=== PATIENT | female | born 1940 | race Caucasian/White ===

== ENCOUNTER 2021-08-10 18:03 | Outpatient (RCR) | payer SELFPAY | END 2022-03-23 15:58 | disposition home or self-care (01) | LOC: MOW 18:03 | PROVIDERS: PCP Family Medicine; Visit Provider Family Medicine | DX: Z76.0 Encounter for issue of repeat prescription (principal) | CPT/HCPCS: S5170 ==

== ENCOUNTER 2021-10-09 20:52 | Emergency (ER) | payer MEDICARE, BC, SELFPAY ==
[2021-10-09 21:01] VITALS: BP 137/89; PULSE 73; RESP 16; TEMP 36.9; O2SAT 98; BMI 23.0
--- NOTE | 2021-10-09 21:40 | ED_ITS ---
HPI - Wound/Laceration General Chief Complaint: Laceration/Wound Stated Complaint: Fall, head lac Time Seen by Provider: 10/09/21 21:20 History of Present Illness HPI narrative: 81-year-old woman presenting to the emergency department with her daughter with whom she lives, underlying history of dense dementia, after sustaining a head injury. Had apparently been croutching in the kitchen and went over backwards striking her head on the wooden floor. They noticed blood and swelling and were recommended to follow up in the emergency department. No loss of consciousness. History from [place] and is not really possible. She is not apparently having unusual pain. Denies neck pain. No changes in mental status or coordination is noted. She has not been vomiting. She is not anticoagulated Related Data Home Medications Medication Instructions Recorded Confirmed donepezil 10 mg tablet 10 mg PO HS 10/09/21 10/09/21 escitalopram oxalate 20 mg tablet 20 mg PO DAILY 10/09/21 10/09/21 levothyroxine 75 mcg tablet 75 mcg PO DAILY 10/09/21 10/09/21 metoprolol succinate 50 mg 50 mg PO DAILY 10/09/21 10/09/21 tablet,extended release 24 hr Allergies Allergy/AdvReac Type Severity Reaction Status Date / Time No Known Drug Allergies Allergy Verified 10/09/21 21:03 Review of Systems Status of ROS: Reports: 6 or more systems reviewed and unremarkable except as noted in History and below (assisted by family) [facility] Medical History Arthritis Closed traumatic compression fracture of thoracic vertebra Dementia Hypothyroidism Lymphocytic colitis Panic disorder Tachycardia, unspecified Vitamin D deficiency Surgical History History of hemorrhoidectomy History of oophorectomy History of vaginal hysterectomy Social History Smoking Status: Never smoker Do you use any of these nicotine containing products: None How often do you have a drink containing alcohol: never AUDIT-C Alcohol total score: 0 Non-prescribed substance use: denies use Exam Narrative: Exam Narrative: pleasant, nad. gcs of 15 through with clear evidence of dementia. breathing easily. cn 2-12 intact head upper occipital area with lightly gapping 1.25 cm laceration. small blood in the area. neck supple skin warm and dry without evidence of injury other than as above. no pain to palp across extremities. no edema. well-perfused. moving all extremities without difficulty cv with reg rate back without apparent injury, nt and without deformity o/t upper kyphosis lungs clear abd protuberant, soft, nt no pain or instability to palp of hips/ant iliac crests Const: Vital Signs, click to edit/add: Vital Signs - 24 hr 10/09/21 21:01 Temperature 98.5 F Pulse Rate [Right Pulse Oximeter] 73 Respiratory Rate 16 Blood Pressure [Le ft Upper Arm] 137/89 Pulse Oximetry 98 Oxygen Delivery Me thod Room Air Documenting provider has reviewed patient's vital signs: yes Course Course Hospital Course: We discussed imaging that might be needed. The question that daughter has is what sort of interventions then reasonably would be done. I take this to mean that DNR status is in effect. Vital Signs Vital signs: Initial Vital Signs Temperature 98.5 F 10/09/21 21:01 Temperature Source Temporal Artery Scan 10/09/21 21:01 Pulse Rate 73 10/09/21 21:01 Respiratory Rate 16 10/09/21 21:01 Blood Pressure 137/89 10/09/21 21:01 Blood Pressure Mean 105 10/09/21 21:01 Blood Pressure Position Sitting 10/09/21 21:01 Pulse Oximetry 98 10/09/21 21:01 Oxygen Delivery Method 10/09/21 21:01 Vital Signs Temperature 98.5 F 10/09/21 21:01 Pulse Rate 73 10/09/21 21:01 Respiratory Rate 16 10/09/21 21:01 Blood Pressure 137/89 10/09/21 21:01 Pulse Oximetry 98 10/09/21 21:01 Oxygen Delivery Method 10/09/21 21:01 Temperature 98.5 F 10/09/21 22:01 Pulse Rate 74 10/09/21 22:01 Respiratory Rate 18 10/09/21 22:01 Blood Pressure 129/74 10/09/21 22:01 Pulse Oximetry 98 10/09/21 22:00 Oxygen Delivery Method 10/09/21 22:00 MDM - Wound/Laceration MDM Narrative Medical decision making narrative: In shared decision making decided to defer any imaging pending change in status. Cleansed head wound with Shur-Clens solution and placed 1 staple. Medical Records Attestation: I reviewed the patient's medical records. Discharge Plan Discharge Clinical Impression: Closed head injury, Laceration of scalp Patient Disposition: Home w/ Parent or Adult Condition: Improved Additional Instructions: Have the staple removed/take out the stable in 5-7 days. As far as head injury, watch for unusual somnolence, repeated vomiting, marked increase in headache, discoordination, changes in mental status/confusion. I would consider further applying an ice pack yet tonight and maybe a couple of times tomorrow. Prescriptions: No Action donepezil 10 mg tablet 10 mg PO HS escitalopram oxalate 20 mg tablet 20 mg PO DAILY levothyroxine 75 mcg tablet 75 mcg PO DAILY metoprolol succinate 50 mg tablet extended release 24 hr 50 mg PO DAILY Follow Up/Referrals: Lory Pedersen MD [Primary Care Provider] - Stand Alone Forms: [employer] Info Instructions
[2021-10-09 22:00] VITALS: BP 129/74; PULSE 74; RESP 18; TEMP 36.9; O2SAT 98
[2021-10-09 22:01] VITALS: BP 129/74; PULSE 74; RESP 18; TEMP 36.9
== END 2021-10-09 22:02 | disposition home or self-care (01) ==
PROVIDERS: Emergency Provider Family Medicine; PCP Family Medicine
DX: S01.01XA Laceration without foreign body of scalp, initial encounter (principal); W01.0XXA Fall on same level from slipping, tripping and stumbling without subsequent striking against object, initial encounter; F03.90 Unspecified dementia, unspecified severity, without behavioral disturbance, psychotic disturbance, mood disturbance, and anxiety
CPT/HCPCS: 12001; 99283

== ENCOUNTER 2022-11-15 12:42 | Outpatient (REF) | payer MEDICARE, BC, SELFPAY ==
[2022-11-15 13:27] LABS: Chloride* 102 mmol/L (96-114); Potassium* 4.4 mmol/L (3.6-5.1); Sodium* 138 mmol/L (135-149)
[2022-11-15 13:29] LABS: Creatinine* 0.6 mg/dL (0.5-1.5); Estimated Glomerular Filt Rate 91 ml/min
[2022-11-15 13:30] LABS: Anion Gap 10 mEq/L (7-15); Blood Urea Nitrogen* 15 mg/dL (7-30); Calcium* 9.5 mg/dL (8.4-10.6); Carbon Dioxide* 26 mmol/L (20-32); Glucose* 91 mg/dL (60-115)
[2022-11-15 14:07] LABS: Hemoglobin A1C* 5.08 % (0-5.6)
== END 2022-11-15 12:43 | disposition home or self-care (01) ==
LOC: NPINS 12:42
PROVIDERS: PCP Family Medicine; Visit Provider Nurse Practitioner Gerontology
DX: R53.83 Other fatigue (principal); Z13.1 Encounter for screening for diabetes mellitus; Z13.0 Encounter for screening for diseases of the blood and blood-forming organs and certain disorders involving the immune mechanism
CPT/HCPCS: 80048; 83036; 85018

== ENCOUNTER 2022-12-14 15:13 | Outpatient (REF) | payer MEDICARE, BC, MEDICAID, SELFPAY ==
[2022-12-14 17:07] LABS: Basophils Percent Auto 0.7 % (0.0-3.0); Eosinophils Percent Auto 3.4 % (0.0-7.0); Hematocrit 42.5 % (33.0-51.0); Hemoglobin* 13.6 gm/dL (12.0-16.0); Lymphocytes Percent Auto 26.4 % (20-44); Mean Corpuscular HGB Conc 32 gm/dL (32-36); Mean Corpuscular Hemoglobin 30 pg (26-34); Mean Corpuscular Volume 95 fL (80-100); Monocytes Percent Auto 5.5 % (0.0-11.0); Platelet Count* 266 K/uL (140-440); RDW Coefficient of Variation % 12.7 % (11.5-15.5); Red Blood Count 4.47 m/uL (4.00-5.20); White Blood Count* 4.35 K/uL (4.50-11.00)
[2022-12-14 17:25] LABS: Slide Review Reflex No
[2022-12-14 18:10] LABS: Thyroid Stimulating Hormone* 0.182 uIU/mL (0.270-4.20)
== END 2022-12-14 15:14 | disposition home or self-care (01) ==
LOC: NPINS 15:13
PROVIDERS: PCP Family Medicine; Visit Provider Family Medicine
DX: E03.9 Hypothyroidism, unspecified (principal)
CPT/HCPCS: 84443; 85025

== ENCOUNTER 2023-03-21 10:35 | Outpatient (REF) | payer MEDICARE, BC, MEDICAID, SELFPAY | END 2023-03-21 10:36 | disposition home or self-care (01) | LOC: NPINS 10:35 | PROVIDERS: PCP Family Medicine; Visit Provider Nurse Practitioner Gerontology | DX: E03.9 Hypothyroidism, unspecified (principal) | CPT/HCPCS: 84443 ==

== ENCOUNTER 2023-08-12 06:31 | Outpatient (CLI) | payer MEDICARE, BC, MEDICAID, SELFPAY | END 2023-08-12 06:32 | disposition home or self-care (01) | LOC: AMB 08-14 15:28 | PROVIDERS: PCP Family Medicine; Visit Provider Family Medicine | DX: S79.911A Unspecified injury of right hip, initial encounter (principal); W07.XXXA Fall from chair, initial encounter; Y92.039 Unspecified place in apartment as the place of occurrence of the external cause | CPT/HCPCS: A0425; A0429 ==

== ENCOUNTER 2023-08-12 06:56 | Observation (INO) | payer MEDICARE, BC, MEDICAID, SELFPAY ==
[2023-08-12 07:02] VITALS: BP 105/66; PULSE 78; RESP 18; TEMP 36.7; O2SAT 99
--- NOTE | 2023-08-12 07:06 | CRLHL7_ITS ---
For Patients: As a result of the Cures Act, medical imaging exams and procedure reports are released immediately into your electronic medical record. You may view this report before your referring provider. If you have questions, please contact your health care provider. Indication: Injury right hip Technique: An AP view of the pelvis was acquired as well as AP and lateral views of the right hip Comparison: None Findings: Decreased bone mineral density. Degenerative changes of visualized lower lumbar spine. No evidence of acute fracture, dislocation or destructive process regarding the visualized sacrum, pelvis or hip joints. Heterogeneous increased density of the soft tissues lateral to the right hip probably a hematoma. Impression: Heterogeneous increased density of the soft tissues lateral to the right hip probably representing hematoma. Demineralized osseous structures and degenerative changes. No visible acute fracture, dislocation or destructive process. Dictated by Winston Acuna MD @ 08/12/2023 8:02:20 AM (Electronically Signed)
--- NOTE | 2023-08-12 07:08 | ED.FALL ---
HPI - Fall General Date Seen: 08/12/23 <Stef Lopez MD - Last Filed: 08/12/23 07:55> Chief Complaint: Hip Injury/Pain <Stef Lopez MD - Last Filed: 08/12/23 07:55> Stated Complaint: right hip injury <Stef Lopez MD - Last Filed: 08/12/23 07:55> Time Seen by Provider: 08/12/23 07:06 <Stef Lopez MD - Last Filed: 08/12/23 07:55> Source: patient, family, EMS, RN notes reviewed and old records reviewed <Stef Lopez MD - Last Filed: 08/12/23 07:55> Mode of arrival: EMS <Stef Lopez MD - Last Filed: 08/12/23 07:55> Limitations: altered mental status <Stef Lopez MD - Last Filed: 08/12/23 07:55> History of Present Illness HPI Narrative: Patient is 83-year-old female who is a resident of the memory care unit at [facility]. She is brought in by EMS after she fell, it was thought that she was sitting down yesterday, around 5:00 p.m.. Just after she ate dinner. She is able to bear weight and transfer at that time. And they did not think anything came of the fall. This morning they noticed that she had a huge amount of swelling over her right hip region with bruising. And she did go on a bear weight. Her baseline status with the dementia as she is basically uncommunicative. Her daughter is here with her. No history of head injury after the fall. Her daughter did notice that her mouth was trembling. She is DNR DNI per her POLST <Stef Lopez MD - Last Filed: 08/12/23 07:55> MD complaint: fall <Stef Lopez MD - Last Filed: 08/12/23 07:55> Onset (ago): hour(s) (14) <Stef Lopez MD - Last Filed: 08/12/23 07:55> Fall from: standing <Stef Lopez MD - Last Filed: 08/12/23 07:55> Fall witnessed: no <Stef Lopez MD - Last Filed: 08/12/23 07:55> Place fall occurred: home and care home/SNF <Stef Lopez MD - Last Filed: 08/12/23 07:55> Loss of consciousness: No <Stef Lopez MD - Last Filed: 08/12/23 07:55> Prolonged down time: no <Stef Lopez MD - Last Filed: 08/12/23 07:55> Symptoms prior to fall: none <Stef Lopez MD - Last Filed: 08/12/23 07:55> Context: other <Stef Lopez MD - Last Filed: 08/12/23 07:55> Location of injury: pelvis <Stef Lopez MD - Last Filed: 08/12/23 07:55> Location of injury - extremities: Right: shoulder <Stef Lopez MD - Last Filed: 08/12/23 07:55> Severity: moderate <Stef Lopez MD - Last Filed: 08/12/23 07:55> Related Data Home Medications: Home Medications ?Medication ?Instructions ?Recorded ?Confirmed donepezil 10 mg tablet 10 mg PO HS 10/09/21 08/12/23 escitalopram oxalate 20 mg tablet 20 mg PO DAILY 10/09/21 08/12/23 metoprolol succinate 50 mg 50 mg PO DAILY 10/09/21 08/12/23 tablet,extended release 24 hr levothyroxine 50 mcg tablet 50 mcg PO DAILY 08/12/23 08/12/23 <Stef Lopez MD - Last Filed: 08/12/23 07:55> Allergies/Adverse Reactions: Allergies Allergy/AdvReac Type Severity Reaction Status Date / Time No Known Drug Allergies Allergy Verified 08/12/23 07:06 <Stef Lopez MD - Last Filed: 08/12/23 07:55> Review of Systems Status of ROS: Reports: unobtainable due to medical condition <Stef Lopez MD - Last Filed: 08/12/23 07:55> PFSH PFSH Medical History: Medical History Arthritis ?M19.90 - Unspecified osteoarthritis, unspecified site (ICD-10) Hypothyroidism ?E03.9 - Hypothyroidism, unspecified (ICD-10) Tachycardia, unspecified ?R00.0 - Tachycardia, unspecified (ICD-10) Vitamin D deficiency ?E55.9 - Vitamin D deficiency, unspecified (ICD-10) Panic disorder ?F41.0 - Panic disorder [episodic paroxysmal anxiety] (ICD-10) Dementia ?F03.90 - Unspecified dementia without behavioral disturbance (ICD-10) Lymphocytic colitis ?K52.832 - Lymphocytic colitis (ICD-10) Closed traumatic compression fracture of thoracic vertebra ?S22.009A - Unspecified fracture of unspecified thoracic vertebra, initial encounter for closed fracture (ICD-10) <Stef Lopez MD - Last Filed: 08/12/23 07:55> Surgical History: Surgical History History of oophorectomy History of vaginal hysterectomy ?Z90.710 - Acquired absence of both cervix and uterus (ICD-10) History of hemorrhoidectomy ?Z98.890 - Other specified postprocedural states (ICD-10) <Stef Lopez MD - Last Filed: 08/12/23 07:55> Social History: Social History Smoking Status: Never smoker Do you use any of these nicotine containing products: None How often do you have a drink containing alcohol: never AUDIT-C Alcohol total score: 0 Non-prescribed substance use: denies use <Stef Lopez MD - Last Filed: 08/12/23 07:55> Exam Narrative: Exam Narrative: I find her in room 6, her knees are drawn up, she is trembling, with her eyes closed and is not at all speaking. She appears at baseline according to her daughter. He does speak words that her usually unintelligible. Pupils are equal round reactive to light, no Perez sign TMs are normal, she does not open her mouth. I do not feel any evidence of any cranial injuries bruising, her neck appears to be nontender to palpation, her chest is good air entry bilaterally with no wheezing crackles noted, heart sounds no clicks murmurs or gallops, no evidence of any bruising over the chest, her abdomen is soft, scaphoid, nontender. With no organomegaly bowel sounds are normal. Her lumbar spine and thoracic spine show no evidence of any tenderness she has a very large right-sided hematoma overlying her right hip. There is ecchymosis overlying this. Her knees are both drawn up, there is no shortening of her legs, she has a normal femoral pulse bilaterally and normal DP and posterior tibial. No evidence of any other deformity noted, her pelvis is stable to rocking. She appears slightly pale. Her daughter tells me that is her normal couple color I discussed with her daughter, we will honor her DNR DNI status. I would suggest pelvis and right hip x-ray. Along with CBC and basic, once we get this we can discuss further care. <Stef Lopez MD - Last Filed: 08/12/23 07:55> Const: Vital Signs, click to edit/add: Vital Signs - 24 hr 08/12/23 07:02 Temperature 98.0 F Pulse Rate [Right Pulse Oximeter] 78 Respiratory Rate 18 Blood Pressure [Ri ght Upper Arm] 105/66 Pulse Oximetry 99 Oxygen Delivery Me thod Room Air <Stef Lopez MD - Last Filed: 08/12/23 07:55> Vital Signs, click to edit/add: Vital Signs - 24 hr 08/12/23 07:02 Temperature 98.0 F Pulse Rate [Right Pulse Oximeter] 78 Respiratory Rate 18 Blood Pressure [Ri ght Upper Arm] 105/66 Pulse Oximetry 99 Oxygen Delivery Me thod Room Air <Maico Jarrett MD - Last Filed: 08/12/23 08:47> Documenting provider has reviewed patient's vital signs: yes <Stef Lopez MD - Last Filed: 08/12/23 07:55> Course Course ED Course: I discussed with the daughter there is no evidence of a fracture, she is in the assisted living/memory care she may need full care home, I am not sure were able to get that with this situation she may need to be admitted. +the hemoglobin and labs need to come back I will sign her over to my partner for further care. <Stef Lopez MD - Last Filed: 08/12/23 07:55> Reevaluation(s) Time of Reevaluation #1: 08:12 <Maico Jarrett MD - Last Filed: 08/12/23 08:47> Reevaluation #1: Assumed care from Dr. Lopez at change of shift. Briefly, 83-year-old female who sustained a fall yesterday, today with increased difficulty weight-bearing a large hematoma the right hip. Labs independently interpreted by me with slightly elevated white count 11.33, this could be from stress demargination, also hemoglobin 11.4 which is down slightly from her baseline last year and may reflect acute blood loss anemia, platelets 235. Basic panel is reassuring. Plan to admit for serial hemoglobin and also physical therapy although patient as been ambulatory since her fall. <Maico Jarrett MD - Last Filed: 08/12/23 08:47> Time of Reevaluation #2: 08:45 <Maico Jarrett MD - Last Filed: 08/12/23 08:47> Reevaluation #2: Care discussed with Dr. Odonnell who accepts the patient for admission. <Maico Jarrett MD - Last Filed: 08/12/23 08:47> Vital Signs Vital signs: Initial Vital Signs Temperature 98.0 F 08/12/23 07:02 Temperature Source Temporal Artery Scan 08/12/23 07:02 Pulse Rate 78 08/12/23 07:02 Respiratory Rate 18 08/12/23 07:02 Blood Pressure 105/66 08/12/23 07:02 Blood Pressure Mean 79 08/12/23 07:02 Blood Pressure Position Sitting 08/12/23 07:02 Pulse Oximetry 99 08/12/23 07:02 Oxygen Delivery Method Room Air 08/12/23 07:02 Vital Signs Temperature 98.0 F 08/12/23 07:02 Pulse Rate 78 08/12/23 07:02 Respiratory Rate 18 08/12/23 07:02 Blood Pressure 105/66 08/12/23 07:02 Pulse Oximetry 99 08/12/23 07:02 Oxygen Delivery Method Room Air 08/12/23 07:02 Temperature 98.0 F 08/12/23 07:02 Pulse Rate 78 08/12/23 07:02 Respiratory Rate 18 08/12/23 07:02 Blood Pressure 105/66 08/12/23 07:02 Pulse Oximetry 99 08/12/23 07:02 Oxygen Delivery Method Room Air 08/12/23 07:02 <Stef Lopez MD - Last Filed: 08/12/23 07:55> Initial Vital Signs Temperature 98.0 F 08/12/23 07:02 Temperature Source Temporal Artery Scan 08/12/23 07:02 Pulse Rate 78 08/12/23 07:02 Respiratory Rate 18 08/12/23 07:02 Blood Pressure 105/66 08/12/23 07:02 Blood Pressure Mean 79 08/12/23 07:02 Blood Pressure Position Sitting 08/12/23 07:02 Pulse Oximetry 99 08/12/23 07:02 Oxygen Delivery Method Room Air 08/12/23 07:02 Vital Signs Temperature 98.0 F 08/12/23 07:02 Pulse Rate 78 08/12/23 07:02 Respiratory Rate 18 08/12/23 07:02 Blood Pressure 105/66 08/12/23 07:02 Pulse Oximetry 99 08/12/23 07:02 Oxygen Delivery Method Room Air 08/12/23 07:02 Temperature 98.0 F 08/12/23 07:02 Pulse Rate 78 08/12/23 07:02 Respiratory Rate 18 08/12/23 07:02 Blood Pressure 105/66 08/12/23 07:02 Pulse Oximetry 99 08/12/23 07:02 Oxygen Delivery Method Room Air 08/12/23 07:02 <Maico Jarrett MD - Last Filed: 08/12/23 08:47> Medications Administered Medications: Discontinued Medications Generic Name Dose Route Start Last Admin Trade Name Freq PRN Reason Stop Dose Admin Morphine Sulfate 2 mg 08/12/23 07:06 08/12/23 07:51 Morphine 2 Mg/Ml Inj IVP 08/12/23 07:07 2 mg ONCE ONE Administration <Stef Lopez MD - Last Filed: 08/12/23 07:55> Discontinued Medications Generic Name Dose Route Start Last Admin Trade Name Freq PRN Reason Stop Dose Admin Morphine Sulfate 2 mg 08/12/23 07:06 08/12/23 07:51 Morphine 2 Mg/Ml Inj IVP 08/12/23 07:07 2 mg ONCE ONE Administration <Maico Jarrett MD - Last Filed: 08/12/23 08:47> [facility] - Fall Medical Records Attestation: I reviewed the patient's medical records. <Stef Lopez MD - Last Filed: 08/12/23 07:55> Lab Data Labs: Lab Results 08/12/23 Range/Units 07:30 WBC 11.33 H (4.50-11.00) K/uL RBC 3.71 L (4.00-5.20) m/uL Hgb 11.4 L (12.0-16.0) gm/dL Hct 35.5 (33.0-51.0) % MCV 96 (80-100) fL MCH 31 (26-34) pg MCHC 32 (32-36) gm/dL RDW Coeff of Jai 12.8 (11.5-15.5) % Plt Count 235 (140-440) K/uL Neut % (Auto) 87.5 H (42.0-72.0) % Lymph % (Auto) 7.8 L (20-44) % Cochran % (Auto) 4.2 (0.0-11.0) % Eos % (Auto) 0.1 (0.0-7.0) % Baso % (Auto) 0.2 (0.0-3.0) % Neut # (Auto) 9.90 H (1.7-7.0) K/uL Lymph # (Auto) 0.90 (0.90-2.90) K/uL Cochran # (Auto) 0.50 (0.00-0.90) K/UL Eos # (Auto) 0.00 (0.00-0.50) K/uL Baso # (Auto) 0.00 (0.00-0.30) K/uL Abs Immat Gran (auto) 0.00 (0.00-0.30) K/uL Imm/Tot Granulo (auto) 0.2 % Sodium 138 (135-149) mmol/L Potassium 3.8 (3.6-5.1) mmol/L Chloride 108 (96-114) mmol/L Carbon Dioxide 24 (20-32) mmol/L Anion Gap 6 L (7-15) mEq/L BUN 17 (7-30) mg/dL Creatinine 0.6 (0.5-1.5) mg/dL Estimated GFR 90 ml/min Glucose 149 H (60-115) mg/dL Calcium 9.0 (8.4-10.6) mg/dL <Stef Lopez MD - Last Filed: 08/12/23 07:55> Lab Results 08/12/23 Range/Units 07:30 WBC 11.33 H (4.50-11.00) K/uL RBC 3.71 L (4.00-5.20) m/uL Hgb 11.4 L (12.0-16.0) gm/dL Hct 35.5 (33.0-51.0) % MCV 96 (80-100) fL MCH 31 (26-34) pg MCHC 32 (32-36) gm/dL RDW Coeff of Jai 12.8 (11.5-15.5) % Plt Count 235 (140-440) K/uL Neut % (Auto) 87.5 H (42.0-72.0) % Lymph % (Auto) 7.8 L (20-44) % Cochran % (Auto) 4.2 (0.0-11.0) % Eos % (Auto) 0.1 (0.0-7.0) % Baso % (Auto) 0.2 (0.0-3.0) % Neut # (Auto) 9.90 H (1.7-7.0) K/uL Lymph # (Auto) 0.90 (0.90-2.90) K/uL Cochran # (Auto) 0.50 (0.00-0.90) K/UL Eos # (Auto) 0.00 (0.00-0.50) K/uL Baso # (Auto) 0.00 (0.00-0.30) K/uL Abs Immat Gran (auto) 0.00 (0.00-0.30) K/uL Imm/Tot Granulo (auto) 0.2 % Sodium 138 (135-149) mmol/L Potassium 3.8 (3.6-5.1) mmol/L Chloride 108 (96-114) mmol/L Carbon Dioxide 24 (20-32) mmol/L Anion Gap 6 L (7-15) mEq/L BUN 17 (7-30) mg/dL Creatinine 0.6 (0.5-1.5) mg/dL Estimated GFR 90 ml/min Glucose 149 H (60-115) mg/dL Calcium 9.0 (8.4-10.6) mg/dL <Maico Jarrett MD - Last Filed: 08/12/23 08:47> Imaging Data Hip x-ray: Attestation: I have reviewed the pertinent imaging results. <Stef Lopez MD - Last Filed: 08/12/23 07:55> My impression: Pelvis son right hip x-ray are reviewed I do not see any evidence of a fracture, I can see the soft tissue swelling consistent with a hematoma. <Stef Lopez MD - Last Filed: 08/12/23 07:55> Discharge Plan Discharge Clinical Impression: Traumatic hematoma of right hip, Dementia, Acute blood loss anemia <Stef Lopez MD - Last Filed: 08/12/23 07:55> Patient Disposition: Admitted As Observation <Stef Lopez MD - Last Filed: 08/12/23 07:55>
[2023-08-12] MEDS: MORPHINE 2 MG/ML inj IVP (07:51)
[2023-08-12 07:58] LABS: Basophils Percent Auto 0.2 % (0.0-3.0); Eosinophils Percent Auto 0.1 % (0.0-7.0); Hematocrit 35.5 % (33.0-51.0); Hemoglobin* 11.4 gm/dL (12.0-16.0); Immature Granulocytes Pct Auto 0.2 %; Lymphocytes Percent Auto 7.8 % (20-44); Mean Corpuscular HGB Conc 32 gm/dL (32-36); Mean Corpuscular Hemoglobin 31 pg (26-34); Mean Corpuscular Volume 96 fL (80-100); Monocytes Percent Auto 4.2 % (0.0-11.0); Neutrophils Percent Auto 87.5 % (42.0-72.0); Platelet Count* 235 K/uL (140-440); RDW Coefficient of Variation % 12.8 % (11.5-15.5); Red Blood Count 3.71 m/uL (4.00-5.20); White Blood Count* 11.33 K/uL (4.50-11.00)
[2023-08-12 08:04] LABS: Chloride* 108 mmol/L (96-114); Potassium* 3.8 mmol/L (3.6-5.1); Slide Review Reflex No; Sodium* 138 mmol/L (135-149)
[2023-08-12 08:07] LABS: Anion Gap 6 mEq/L (7-15); Blood Urea Nitrogen* 17 mg/dL (7-30); Carbon Dioxide* 24 mmol/L (20-32); Creatinine* 0.6 mg/dL (0.5-1.5); Estimated Glomerular Filt Rate 90 ml/min; Glucose* 149 mg/dL (60-115)
--- NOTE | 2023-08-12 09:16 | CRLHL7_ITS ---
For Patients: As a result of the Century Cures Act, medical imaging exams and procedure reports are released immediately into your electronic medical record. You may view this report before your referring provider. If you have questions, please contact your health care provider. INDICATION: Right hip pain after a fall. COMPARISON: Plain film 12 August 2023. TECHNIQUE: Noncontrast images pelvis with actual full filled performance. Axial coronal and sagittal small field performance right hip. FINDINGS: Moderately prominent diffuse demineralization. Mild degenerative facet arthrosis and disc disease in the lumbosacral spine. Minor osteoarthritis and vacuum joint air in both SI joints. No sacral fracture. No pelvic fracture. Minor osteoarthritis symphysis pubis. Anatomic alignment of the hips. Mild osteoarthritis narrowing and osteophytic spurring bilaterally. In the subcutaneous soft tissues of the right lateral hip into the thigh there is a lentiform intermediate attenuation presumed hematoma with some surrounding reticular contusion and edema appearance. Greatest axial diameter roughly 9.4 x 4.6 cm in craniocaudal length at roughly 11 cm. This is superficial to the iliotibial band. No fluid in the trochanteric bursa. Intact hamstring. Muscle bulk and attenuation unremarkable for age. IMPRESSION: Moderately large acute appearing hematoma in the subcutaneous adipose of the lateral right hip and proximal thigh. Please note that all CT scans at this facility use dose modulation, iterative reconstruction, and/or weight-based dosing when appropriate to reduce radiation dose to as low as reasonably achievable. Dictated by Ray Perez MD @ 08/12/2023 9:43:48 AM (Electronically Signed)
--- NOTE | 2023-08-12 09:36 | P.IMHP_ITS ---
Hospitalist- H&P: JORGE History of Present Illness Date Seen: 08/12/23 Chief complaint: right hip injury Narrative: Cristal Solis is a 83 year old woman is brought in to the [facility] Emergency Department this morning for further assessment of right hip pain. Lives in [facility] at [place], [place]. Has underlying advanced dementia and is usually non communicative. Her needs and wants are anticipated in great measure. Was in her usual state of health until 5:00 p.m. yesterday when after dinner she was found sitting on the floor. It was thought that she simply sat on the floor and had no injury. They were able to help her get up and she was able to ambulate without difficulty afterward. This morning however she complained of right hip pain and the pain was such that she refused to get up and ambulate as usual. They found a large hematoma over the right hip lateral aspect and thus referred her to the hospital for further assessment. In our emergency depart x-ray demonstrated no obvious fracture of bones. Does have soft tissue density consistent with hematoma on x-ray. Additionally her hemoglobin was down to 11.4 from baseline of 13.6 7 months ago. Hence, given patient's inability to transfer and ambulate now compared to baseline and the fact that her current assisted living facility abilities preclude them from being able to care for her at this higher level of need, patient is admitted to the hospital for observation, physical therapy and occupational therapy assessment and support, and consideration of appropriate discharge disposition plan, whether it be back to the same level of assisted living care versus a higher level of assisted living care versus short-term transitional care in the fci facility, time will decide. Additionally, we will need to monitor serial hemoglobins. Lastly, I opted to obtain a CT scan of the right hip for further radiographic assessment of possible fracture. Review of Systems Status of ROS: Reports: 6 or more systems reviewed and unremarkable except as noted in History and below Narrative: Patient is essentially nonverbal at baseline. Does utter a few words which are in word salad in non comprehensible a times. Needs assist with most of her ADLs ordinarily, although can still transfer and ambulate independently with assist of walker. Also able to feed self after food prep and setup. Patient's daughter, Abbey, accompanies her. Patient has been at baseline up until the incident that occurred at 5:00 p.m. yesterday. Patient continues to have DNR DNI resuscitation status. Goal continues to be to help patient be comfortable. Abbey is primary contact. Abbey sister, Hanna, is secondary contact. [facility] Medical History Arthritis ?M19.90 - Unspecified osteoarthritis, unspecified site (ICD-10) Hypothyroidism ?E03.9 - Hypothyroidism, unspecified (ICD-10) Tachycardia, unspecified ?R00.0 - Tachycardia, unspecified (ICD-10) Vitamin D deficiency ?E55.9 - Vitamin D deficiency, unspecified (ICD-10) Panic disorder ?F41.0 - Panic disorder [episodic paroxysmal anxiety] (ICD-10) Dementia ?F03.90 - Unspecified dementia without behavioral disturbance (ICD-10) Lymphocytic colitis ?K52.832 - Lymphocytic colitis (ICD-10) Closed traumatic compression fracture of thoracic vertebra ?S22.009A - Unspecified fracture of unspecified thoracic vertebra, initial encounter for closed fracture (ICD-10) Surgical History History of oophorectomy History of vaginal hysterectomy ?Z90.710 - Acquired absence of both cervix and uterus (ICD-10) History of hemorrhoidectomy ?Z98.890 - Other specified postprocedural states (ICD-10) Social History Smoking Status: Never smoker Do you use any of these nicotine containing products: None How often do you have a drink containing alcohol: never AUDIT-C Alcohol total score: 0 Non-prescribed substance use: denies use Meds Home Medications and Allergies Home Medications ?Medication ?Instructions ?Recorded ?Confirmed ?Type donepezil 10 mg tablet 10 mg PO HS 10/09/21 08/12/23 History escitalopram oxalate 20 mg tablet 20 mg PO DAILY 10/09/21 08/12/23 History metoprolol succinate 50 mg 50 mg PO DAILY 10/09/21 08/12/23 History tablet,extended release 24 hr levothyroxine 50 mcg tablet 50 mcg PO DAILY 08/12/23 08/12/23 History Allergies Allergy/AdvReac Type Severity Reaction Status Date / Time No Known Drug Allergies Allergy Verified 08/12/23 07:06 Exam Narrative: Exam Narrative: I examined the patient 1st in the emergency department and secondly in her room on the hospital medical surgical floor. On the Hospital medical-surgical floor, I examined the patient with her daughter present. Patient is laying still and appears comfortable. Does not appear to be in any acute distress. [id number] discomfort when transferring patient from a transportation cart to her hospital bed. Recovers quickly. When aroused she is alert and oriented to self only. Unable to engage in any meaningful dialogue. On visual inspection of her skin she has a small laceration/skin tear on her right elbow covered with Steri-Strips and dry blood. She has the large area of ecchymosis from the hematoma overlying the lateral aspect of her right hip, measuring 25 cm in length by 20 cm in width. Indurated with no fluctuance. Not warm to touch. Seemingly not tender to touch. No obvious focal motor neurologic deficits. Cranial nerves 3-12 grossly intact. No resting tremor. Tympanic membranes and hearing are normal. Conjugate gaze. No icterus or conjunctival injection. Midline nasal septum. Dentition in fair repair. Dry buccal mucosa. Neck is supple. Midline trachea. No JVD or hepatojugular reflux. No carotid bruits. Lungs clear to auscultation anteriorly and laterally. Chest wall excursions are full. Heart tones with regular rhythm with occasional extrasystole, normal S1-S2, soft systolic murmur across precordium. Abdomen with active bowel sounds, soft, nontender. No organomegaly or masses. No rebound or guarding. Able to move right and left hip without elicitation of pain. Generalize weakness. Not able to transfer as she ordinarily is able to do seemingly related to pain. Const: Vital Signs, click to edit/add: Vital Signs - 24 hr 08/12/23 07:02 Temperature 98.0 F Pulse Rate [Right Pulse Oximeter] 78 Respiratory Rate 18 Blood Pressure [Ri ght Upper Arm] 105/66 Pulse Oximetry 99 Oxygen Delivery Me thod Room Air Hospitalist - H&P: Result Labs Labs: Short CBC 08/12/23 Range/Units 07:30 WBC 11.33 H (4.50-11.00) K/uL Hgb 11.4 L (12.0-16.0) gm/dL Hct 35.5 (33.0-51.0) % Plt Count 235 (140-440) K/uL BMP 08/12/23 07:30 Sodium 138 Potassium 3.8 Chloride 108 Carbon Dioxide 24 BUN 17 Creatinine 0.6 Glucose 149 H Calcium 9.0 Imaging Right hip x-ray: Attestation: I have reviewed the pertinent imaging results. Radiologist's impression: No obvious fractures. Hematoma overlying right hip. Assessment and Plan Assessment and plan (1) Fall: Problem comment: -08/11/2023 at 5:00 p.m. Status: Acute (2) Unsteady gait: Problem comment: -chronic and progressive -physical therapy and occupational therapy will assess while in hospital Status: Acute (3) Traumatic hematoma of right hip: Problem comment: -status post fall at 5:00 p.m. on 08/11/2023 -x-ray obtained on 08/12/2023 demonstrates no obvious fracture. -will order CT scan of right hip Status: Acute (4) Acute blood loss anemia: Problem comment: -baseline hemoglobin 13.67 months ago and now 11.4. -serial hemoglobins Status: Acute (5) Dementia: Problem comment: -presumably late onset Alzheimer's disease -patient has DNR DNI resuscitation status with goal of maintaining comfort Status: Acute Plan 1. Reviewed impression with patient and daughterAbbey 2. Reviewed plans and recommendations as well 3. Answered questions 4. Patient daughterAbbey, agreeable with above stated plans and recommendations Total Time Spent Total Time Spent: 65 minutes
[2023-08-12 10:07] VITALS: BP 86/63; PULSE 93; RESP 16; TEMP 36.8; O2SAT 96; BMI 19.7
[2023-08-12 11:21] VITALS: BP 95/65; PULSE 87; RESP 16; O2SAT 97
[2023-08-12 11:30] VITALS: RESP 16; O2SAT 97
[2023-08-12 11:38] LABS: Hemoglobin* 11.3 gm/dL (12.0-16.0)
[2023-08-12] MEDS: ACETAMINOPHEN 325 MG TABLET 650 MG PO ×3 (12:37→21:34)
[2023-08-12] MEDS: OXYCODONE 5 MG TABLET 2.5 MG PO ×2 (12:37→17:24)
[2023-08-12 15:20] LABS: Hemoglobin* 11.1 gm/dL (12.0-16.0)
[2023-08-12 16:00] VITALS: BP 86/73; PULSE 93; RESP 16; TEMP 37.2; O2SAT 97
--- NOTE | 2023-08-12 17:08 | CRLHL7_ITS ---
For Patients: As a result of the Century Cures Act, medical imaging exams and procedure reports are released immediately into your electronic medical record. You may view this report before your referring provider. If you have questions, please contact your health care provider. Indication: FALL. DEMENTIA Technique: CT head without IV contrast Comparison: None Findings: Brain Parenchyma: Global cortical involutional changes. No acute infarct, acute intracranial hemorrhage, mass effect, or midline shift. Periventricular and supraventricular white matter hypodensity, suggestive of chronic microvascular ischemic changes. Ventricles: Ventricular enlargement, commensurate with the degree of cortical involutional changes and sulcal prominence. Extra-axial Spaces: No abnormal fluid collection. Paranasal sinuses: No significant mucosal thickening. Orbits: Unremarkable. Mastoid Sinuses: Unremarkable. Cranium: No acute fracture. Soft tissues: Unremarkable. Impression: No evidence of an acute intracranial process or acute traumatic injury. Please note that all CT scans at this facility use dose modulation, iterative reconstruction, and/or weight-based dosing when appropriate to reduce radiation dose to as low as reasonably achievable. Dictated by Husam Franco MD @ 08/12/2023 6:38:02 PM (Electronically Signed)
[2023-08-12 20:02] LABS: Hemoglobin* 10.3 gm/dL (12.0-16.0)
[2023-08-12 23:00] VITALS: BP 97/82; PULSE 70; RESP 16; TEMP 37.2; O2SAT 95
[2023-08-13] VITALS (8 sets, daily range): BP systolic 98–113; BP diastolic 58–77; PULSE 75–105; RESP 16–17; TEMP 36.6–37.4; O2SAT 94–97
--- NOTE | 2023-08-13 06:43 | PC.NURSE ---
Shift note: Pt has been in bed throughout the shift. Check and change and reposition Q2hr. Pt continue to close eyes even during care. No s/s of discomfort noted. Vitally stable.
[2023-08-13 07:13] LABS: Hematocrit 30.1 % (33.0-51.0); Hemoglobin* 9.7 gm/dL (12.0-16.0); Mean Corpuscular HGB Conc 32 gm/dL (32-36); Mean Corpuscular Hemoglobin 31 pg (26-34); Mean Corpuscular Volume 97 fL (80-100); Platelet Count* 229 K/uL (140-440); Red Blood Count 3.11 m/uL (4.00-5.20); White Blood Count* 6.28 K/uL (4.50-11.00)
[2023-08-13 07:22] LABS: Slide Review Reflex No
[2023-08-13] MEDS: ESCITALOPRAM 10 MG TABLET 20 MG PO (09:14)
[2023-08-13] MEDS: LEVOTHYROXINE 50 MCG TABLET PO (09:15)
[2023-08-13] MEDS: ACETAMINOPHEN 325 MG TABLET 650 MG PO ×3 (09:15→20:42)
[2023-08-13 13:08] LABS: Hemoglobin* 10.7 gm/dL (12.0-16.0)
--- NOTE | 2023-08-13 16:15 | PM.IMPN1 ---
Progress Note: A&P Assessment and plan (1) Fall: Problem details: -08/11/2023 at 5:00 p.m. Status: Acute (2) Unsteady gait: Problem details: -chronic and progressive -physical therapy and occupational therapy will assess while in hospital - ambulating with assist without apparent pain Status: Acute (3) Traumatic hematoma of right hip: Problem details: -status post fall at 5:00 p.m. on 08/11/2023 -x-ray obtained on 08/12/2023 demonstrates no obvious fracture. -CT scan of right hip demonstrates no acute fracture, only hematoma Status: Acute (4) Acute blood loss anemia: Problem details: -baseline hemoglobin 13.67 months ago and now 11.4. -serial hemoglobins have been steady Status: Acute (5) Dementia: Problem details: -presumably late onset Alzheimer's disease -patient has DNR DNI resuscitation status with goal of maintaining comfort Status: Acute Plan 1. Reviewed impression with patient daughter, Abbey. 2. Answered questions. 3. If patient's condition remains stable she might possibly be able to return back to [facility] as early as tomorrow or the following day. Time Spent With Patient Total time spent: 30 minutes Subjective Date Seen: 08/13/23 Interval history: Admission history of present illness: ?Cristal Solis is a 83 year old woman is brought in to the [facility] Emergency Department this morning for further assessment of right hip pain. Lives in [facility] [place], [place]. Has underlying advanced dementia and is usually non communicative. Her needs and wants are anticipated in great measure. ?Was in her usual state of health until 5:00 p.m. yesterday when after dinner she was found sitting on the floor. It was thought that she simply sat on the floor and had no injury. They were able to help her get up and she was able to ambulate without difficulty afterward. This morning however she complained of right hip pain and the pain was such that she refused to get up and ambulate as usual. They found a large hematoma over the right hip lateral aspect and thus referred her to the hospital for further assessment. ?In our emergency depart x-ray demonstrated no obvious fracture of bones. Does have soft tissue density consistent with hematoma on x-ray. Additionally her hemoglobin was down to 11.4 from baseline of 13.6 7 months ago. Hence, given patient's inability to transfer and ambulate now compared to baseline and the fact that her current assisted living facility abilities preclude them from being able to care for her at this higher level of need, patient is admitted to the hospital for observation, physical therapy and occupational therapy assessment and support, and consideration of appropriate discharge disposition plan, whether it be back to the same level of assisted living care versus a higher level of assisted living care versus short-term transitional care in the [facility]ci facility, time will decide. Additionally, we will need to monitor serial hemoglobins. Lastly, I opted to obtain a CT scan of the right hip for further radiographic assessment of possible fracture.? Hospital day 2. Patient admitted on 08/12/2023. I visited with patient's daughter, Abbey, who is present today. She confirms that the patient is nonverbal and has been for some time. Daughter indicates that her mother lives at the [facility], a memory care unit. Patient tolerating increased activity. With assistive others is able to ambulate. Eyes shut much of the time. Eating and drinking. Daughter notes she is at baseline. Exam Narrative: Exam Narrative: Examined patient in her hospital room with her daughter at her bedside. Sitting upright in a recliner chair. Appears comfortable. Covering and on covering her eyes with her blanket. Unable to engage in conversation. Lungs clear to auscultation. Heart tones regular rhythm. Abdomen benign. With assist of 2 is able to transfer and ambulate. No apparent pain. Const: Vital Signs, click to edit/add: Vital Signs - 24 hr 08/12/23 23:00 08/12/23 23:00 08/12/23 23:00 Temperature 98.9 F Pulse Rate [Left P ulse Oximeter] 70 70 Respiratory Rate 16 16 16 Blood Pressure [Le ft Arm] 97/82 Pulse Oximetry 95 95 Oxygen Delivery Me thod Room Air Room Air 08/13/23 03:00 08/13/23 09:00 08/13/23 09:00 Temperature 98 F 97.8 F Pulse Rate [Left P ulse Oximeter] 75 105 H Respiratory Rate 16 16 16 Blood Pressure [Le ft Arm] 107/60 108/77 Pulse Oximetry 95 97 97 Oxygen Delivery Me thod Room Air Room Air Room Air 08/13/23 15:00 Temperature 99.3 F Pulse Rate [Left P ulse Oximeter] 86 Respiratory Rate 17 Blood Pressure [Le ft Arm] 98/70 Pulse Oximetry 96 Oxygen Delivery Me thod Room Air Labs Labs: Laboratory Results - last 24 hr 08/12/23 08/13/23 08/13/23 19:30 05:55 12:45 WBC 6.28 RBC 3.11 L Hgb 10.3 L 9.7 L 10.7 L Hct 30.1 L MCV 97 MCH 31 MCHC 32 Plt Count 229
--- NOTE | 2023-08-13 19:39 | PC.NURSE ---
End of Shift: The patient is alert to self only. Nonverbal for the most part other than soft spoken mumbling at times. Incontinent of urine... foul smell due to poor PO intake. UP AX2 w/ guiding the patient by the hands. At some points the patient will not open her eyes. Takes pills decently crushed in ensure/ or water in a syringe and tell her you have pills for her and tell her to swallow. Sometimes you have to give her extra time. R hip hematoma with new outlined areas which are marked. The patients pain seems under better control with scheduled Tylenol. Call light within reach. Swetha FLOWERS BSN
[2023-08-14 02:38] VITALS: BP 114/69; PULSE 78; RESP 16; TEMP 36.5; O2SAT 98
--- NOTE | 2023-08-14 04:04 | PC.NURSE ---
Pt rested comfortbaly this night. Does not appear to be in pain. Incontinent of urine. Change, turn and repo Q2. Pt pleasant and cooperative. Non-verbal.
[2023-08-14 08:00] VITALS: BP 113/73; PULSE 83; RESP 14; TEMP 36.7; O2SAT 97
[2023-08-14] MEDS: ACETAMINOPHEN 325 MG TABLET 650 MG PO ×2 (09:01→13:31)
[2023-08-14] MEDS: ESCITALOPRAM 10 MG TABLET 20 MG PO (09:07)
[2023-08-14] MEDS: LEVOTHYROXINE 50 MCG TABLET PO (09:07)
--- NOTE | 2023-08-14 10:47 | PM.DS1 ---
DS: Providers Provider Date Seen: 08/14/23 Date of admission: 08/12/23 09:12 Primary care physician: Yazan Lopez MD Admitting Clinician: Prasanth Travis MD Consults: 08/12/23 09:51 Consult to Occupational Therapy [CONS] Routine Comment: Reason(s) for OT Consult:: Evaluate and Treat Any Restrictions?:: No Restrictions Consult to Physical Therapy [CONS] Routine Comment: Reason(s) for PT Consult:: Evaluate and Treat Any Restrictions?:: No Restrictions Consult to Wheel Aligner [CONS] Routine Comment: Reason for Consult:: Discharge Planning Needs 08/12/23 13:28 Consult to Occupational Therapy [CONS] Routine Comment: Reason(s) for OT Consult:: Difficulty Managing ADLs Any Restrictions?:: No Restrictions Consult to Physical Therapy [CONS] Routine Comment: Reason(s) for PT Consult:: Recent Falls Any Restrictions?:: No Restrictions Attending Physician on discharge: Ana Woody MD [facility] Date of Discharge: 08/14/23 DS: Diagnosis Discharge Diagnosis (1) Traumatic hematoma of right hip: Status: Acute Problem details: -status post fall at 5:00 p.m. on 08/11/2023 -x-ray obtained on 08/12/2023 demonstrates no obvious fracture. -CT scan of right hip demonstrates no acute fracture, only hematoma (2) Acute blood loss anemia: Status: Acute Problem details: -baseline hemoglobin 13.67 months ago and discharge hemoglobin 10.7. -clinically stable of, hemoglobin stable (3) Fall: Status: Acute Problem details: -08/11/2023 at 5:00 p.m. (4) Dementia: Status: Acute Problem details: -presumably late onset Alzheimer's disease -patient has DNR DNI resuscitation status with goal of maintaining comfort (5) Unsteady gait: Status: Acute Problem details: -chronic and progressive -RN from memory care reports patient to be at her baseline during inpatient assessment this morning. Stable to return to memory care unit. DS: Summary Hospital Course Hospital Course: FINAL DIAGNOSIS/FOLLOW UP ISSUES: 1. Fall with soft tissue injury. Hematoma to her right hip was treated with conservative care. Serial hemoglobins noted a drop of approximately 3 g of hemoglobin. Inpatient PT and OT services are appreciated. Patient is stable to return to her memory care unit as of 03/08 BRIEF HOSPITAL COURSE: Patient was admitted for 4 days. Synopsis of acute inpatient issues are outlined above. Chronic medical conditions with notable findings outlined above. DISCHARGE MEDICATIONS: See Reconciled list - SIGNIFICANT CHANGES: None Specific instructions to the patient and follow-up are outlined below. REVIEW OF SYSTEMS No new chest pain or dyspnea Pain controlled No voiding difficulties Tolerating diet challenge PHYSICAL EXAM: CONSTITUTIONAL: Pleasantly confused with limited verbal communication VITAL SIGNS: see record. HEENT: Normocephalic, atraumatic. PERRL, EOMI, conjunctivae pink, no scleral icterus. Ears and nose externally normal. Pharynx normal. NECK: No JVD. No carotid bruit, no thyromegaly, no adenopathy. CHEST: Clear to auscultation bilaterally. HEART: S1 and S2 normal. Edema ABDOMEN: Soft, nontender. Normal bowel sounds. MUSCULOSKELETAL: Large hematoma on the right hip NEURO: Cranial nerves intact. Grossly intact. No asymmetric findings. SKIN: No rashes, petechiae, concerning changes PSYCHIATRIC: Mood euthymic. DISPOSITION: Memory care unit Time spent on discharge 37 minutes. Status at Discharge Functional status at discharge: wheelchair bound Overall status at discharge: patient is progressing back to baseline Time Spent with Patient Time attestation: Total time spent providing and/or coordinating discharge services: Exam Const: Vital Signs, click to edit/add: Vital Signs - 24 hr 08/13/23 15:00 08/13/23 16:17 08/13/23 16:17 Temperature 99.3 F 98.7 F Pulse Rate [Left P ulse Oximeter] 86 80 Respiratory Rate 17 16 16 Blood Pressure [Le ft Arm] 98/70 Blood Pressure [Ri ght Arm] 112/67 Pulse Oximetry 96 95 95 Oxygen Delivery Me thod Room Air Room Air Room Air 08/13/23 19:48 08/13/23 20:42 08/13/23 22:31 Temperature 98.5 F 98.5 F 98.4 F Pulse Rate [Left P ulse Oximeter] 88 78 Respiratory Rate 16 16 Blood Pressure [Le ft Arm] Blood Pressure [Ri ght Arm] 106/58 L 113/69 Pulse Oximetry 94 96 Oxygen Delivery Me thod Room Air 08/13/23 22:33 08/13/23 22:33 08/14/23 02:38 Temperature 97.7 F Pulse Rate [Left P ulse Oximeter] 78 78 Respiratory Rate 16 16 16 Blood Pressure [Le ft Arm] Blood Pressure [Ri ght Arm] 114/69 Pulse Oximetry 96 98 Oxygen Delivery Me thod Room Air Room Air 08/14/23 08:00 08/14/23 08:00 Temperature 98.1 F Pulse Rate [Left P ulse Oximeter] 83 Respiratory Rate 14 14 Blood Pressure [Le ft Arm] Blood Pressure [Ri ght Arm] 113/73 Pulse Oximetry 97 97 Oxygen Delivery Me thod Room Air Room Air DS: Data Data Completed and Pending Labs on day of discharge: Labs from last 24 hours 08/13/23 12:45 Hgb 10.7 L Discharge Plan Discharge Disposition: [facility] Date of Admission: 08/12/23 09:12 Attending Provider on Discharge: Ana Woody Primary Care Provider: Yazan Lopez Discharge Medications: Continued escitalopram oxalate 20 mg tablet 20 mg PO DAILY metoprolol succinate 50 mg tablet extended release 24 hr 50 mg PO DAILY levothyroxine 50 mcg tablet 50 mcg PO DAILY loperamide 2 mg capsule 2 mg PO Q2H PRN (Reason: diarrhea) magnesium hydroxide [Milk of Magnesia] 400 mg/5 mL suspension 30 ml PO DAILY PRN (Reason: constipation) Changed acetaminophen [Pain Reliever ES(acetaminophn)] 500 mg tablet 1,000 mg PO 3XD Qty: 180 0RF Discharge Orders: Discharge Order (Routine); Ordered 08/14/23 Ordered By: Ana Woody Activity Level: Activity as Tolerated Discharge Diet: Regular Follow Up Appointments: Yazan Lopez MD [Primary Care Provider] - Forms: Mydeo Info Instructions Admit to: SNF Discharge Potential: Poor Length of Stay: >90 days Can use facility standing orders?: Yes Code Status: DNR/DNI Rehab Potential: Poor Oxygen: No Urinary Catheter: No Orders are good >30 days: Yes
[2023-08-14 11:06] VITALS: BP 93/67; PULSE 79; RESP 16; TEMP 36.1; O2SAT 96
--- NOTE | 2023-08-14 12:37 | PC.SOCIAL ---
Discharge planning- Shelley Myers, Nurse at [facility], was at the hospital this AM to assess patient for return to [facility]. Shelley informs that patient is at baseline and can return back to facility today. Facility van will transport at 1:00 pm. Secure e-mailed discharge orders to Shelley Myers. Phone call to patient's daughter, Renetta, to provide update on discharge. Provided update to charge nurse and MD. Will follow up as needed.
--- NOTE | 2023-08-14 13:59 | PC.NURSE ---
Discharge: Patient pleasant and cooperative. Up with one assist and gait belt, uses hand of staff for balance. Vitals stable and WNL. Appeared comfortable throughout shift. Worked with PT/OT, able to ambulate to bathroom. Incontinent x2. Needing assistance with feedings. Nurse, Shelley, from [facility] here to see her today, given update and confirmed patient is baseline and acceptable to go home. Discharged @ 1335, [facility] van here to [place]. Daughter updated via phone.
== END 2023-08-14 13:46 ==
LOC: ED 09:08 → MEDSURG 09:13
PROVIDERS: Admitting Provider Internal Medicine; Emergency Provider Family Medicine; PCP Family Medicine; Visit Provider Internal Medicine
DX: S70.01XA Contusion of right hip, initial encounter (principal); D62 Acute posthemorrhagic anemia; F03.90 Unspecified dementia, unspecified severity, without behavioral disturbance, psychotic disturbance, mood disturbance, and anxiety; W19.XXXA Unspecified fall, initial encounter; R53.1 Weakness; D72.829 Elevated white blood cell count, unspecified; M25.551 Pain in right hip; S51.011A Laceration without foreign body of right elbow, initial encounter; R26.81 Unsteadiness on feet; I10 Essential (primary) hypertension; M19.90 Unspecified osteoarthritis, unspecified site; E03.9 Hypothyroidism, unspecified; F41.0 Panic disorder [episodic paroxysmal anxiety]; Z90.710 Acquired absence of both cervix and uterus; Z98.890 Other specified postprocedural states; Z66 Do not resuscitate
CPT/HCPCS: 36415; 70450; 73502; 73700; 80048; 81001; 85018; 85025; 85027; 86850; 86900; 86901; 87081; 96374; 97110; 97116; 97161; 97165; 97535; 99285; A9270; G0378; J2270